=== PATIENT | female | born 1960 | race Caucasian/White ===

== ENCOUNTER 2020-03-19 22:15 | Emergency (ER) | payer MEDICAID ==
[~2020-03-19] VITALS: Ht 157.5 cm; Wt 63.2 kg
[2020-03-19] MEDS ORDERED: oxymetazoline 15 ML nasal spray NS ONE (22:35)
[2020-03-19] MEDS ORDERED: LIDOcaine Viscous 15ml cup MM PRN (22:40)
[2020-03-19 23:47] VITALS: BP 157/92
== END 2020-03-19 23:49 | disposition home or self-care (01) ==
LOC: ER 22:17
DX: R04.0 Epistaxis (principal); G47.00 Insomnia, unspecified; Z88.0 Allergy status to penicillin
CPT/HCPCS: 30901; 99283; 99284